=== PATIENT | female | born 1940 | race Two or more races ===

== ENCOUNTER 2021-06-05 14:33 | Inpatient (IN) | payer MEDICARE, OTHER ==
[~2021-06-05] VITALS: Ht 167.6 cm; Wt 68.2 kg
[2021-06-05] MEDS ORDERED: Z GUARD REMEDY PASTE 57 GM TUBE TOP PRN (20:00)
--- NOTE | 2021-06-05 20:30 | NUR ---
Patient arrived on the floor via ambulance from [facility], [facility] 2 EMT[facility] Awake, alert and oriented x 4, oriented to room, staff, call light and bed controls. Denies pain when keep still but complaint of pain when turned from the side.Routine admission care done. Plan of care initiated.
[2021-06-05] MEDS ORDERED: MULT-1201 PO (21:46)
[2021-06-05] MEDS ORDERED: BIMA2.5D5 EACHEYE (21:46)
[2021-06-05] MEDS ORDERED: ENOX40DI SQ (21:46)
[2021-06-05] MEDS ORDERED: ACET-2030 PO (21:46)
[2021-06-05] MEDS ORDERED: PITA2TAB PO (21:46)
[2021-06-05] MEDS ORDERED: OLME40TA12 PO (21:46)
[2021-06-05] MEDS ORDERED: DEXL60CA3 PO (21:46)
[2021-06-05] MEDS ORDERED: DILT-32 PO (21:46)
[2021-06-05] MEDS ORDERED: AMLO-212 PO (21:46)
[2021-06-05] MEDS ORDERED: ICOS1CAP PO (21:46)
[2021-06-05] MEDS ORDERED: MELA3TAB41 PO (21:46)
[2021-06-05] MEDS ORDERED: ASPI81TA31 PO (21:46)
[2021-06-05] MEDS ORDERED: DILT180C66 PO (21:46)
[2021-06-05] MEDS ORDERED: ALBU90AE IH (21:46)
[2021-06-05] MEDS ORDERED: CHOL-35 PO (21:46)
[2021-06-05] MEDS ORDERED: TRAM50TA2 PO (21:46)
[2021-06-05] MEDS ORDERED: ONDA4TAB11 PO (21:46)
--- NOTE | 2021-06-05 23:19 | NUR ---
Dr Bray here, seen and evaluated patient.
[2021-06-06 04:53] VITALS: BP 126/61
[2021-06-06] MEDS ORDERED: TRAMADOL HCL 50 MG TABLET PO PRN (05:45)
[2021-06-06] MEDS ORDERED: MELATONIN 3 MG TABLET PO PRN ×2 (05:45→07:00)
[2021-06-06] MEDS ORDERED: ONDANSETRON ODT 4 MG TAB.RAPDIS SL PRN (05:45)
[2021-06-06] MEDS ORDERED: ALBUTEROL SULFATE 2.5 MG/3 ML NEBU NEB PRN (06:15)
[2021-06-06 08:00] VITALS: BP 111/53
[2021-06-06] MEDS ORDERED: Icosapent Ethyl (Vascepa) 1 GM) PO SCH (08:00)
[2021-06-06] MEDS ORDERED: CHOLECALCIFEROL 1,000 UNIT TABLET PO SCH (09:00)
[2021-06-06] MEDS ORDERED: DILTIAZEM HCL CD 120 MG CAP.SR.24H PO SCH ×3 (09:00)
[2021-06-06] MEDS ORDERED: Medication Not On Formulary EA (Olmesartan Medoxomil (Benicar) 40 MG) PO SCH (09:00)
[2021-06-06] MEDS: ASPIRIN 81 MG TAB.CHEW PO SCH (09:15)
[2021-06-06] MEDS: AMLODIPINE 5 MG TABLET PO SCH (09:15)
[2021-06-06] MEDS: LOSARTAN POTASSIUM 50 MG TABLET PO SCH (09:15)
[2021-06-06] MEDS: ENOXAPARIN SODIUM 40 MG/0.4 ML DISP.SYRIN SQ SCH (09:16)
[2021-06-06] MEDS: MULTIVIT, IRON, MIN NO. 8, FA TABLET PO SCH (09:16)
[2021-06-06] MEDS ORDERED: CALC-995 PO (11:40)
[2021-06-06] MEDS ORDERED: CALC-883 PO (11:41)
[2021-06-06 15:45] VITALS: BP 105/55
[2021-06-06] MEDS: CALCIUM CARB/VITAMIN D 500MG-200UNITS TABLET PO SCH (17:30)
[2021-06-06] MEDS: ACETAMINOPHEN ES 500 MG TABLET PO SCH (20:15)
[2021-06-06 20:54] VITALS: BP 110/59
[2021-06-06] MEDS: LATANOPROST OPHT DROP 2.5 ML BOTTLE EACHEYE SCH (20:55)
[2021-06-06] MEDS ORDERED: PITAVASTATIN CALCIUM 2 MG PO SCH (21:00)
[2021-06-06] MEDS ORDERED: BIMATOPROST 0.01% OPHT DROP 2.5 ML BOTTLE EACHEYE SCH (21:00)
[2021-06-07 04:47] VITALS: BP 115/66
[2021-06-07] MEDS: PANTOPRAZOLE SODIUM 40 MG TABLET.DR PO SCH (06:05)
[2021-06-07 08:39] VITALS: BP 118/69
[2021-06-07] MEDS: CALCIUM CARB/VITAMIN D 500MG-200UNITS TABLET PO SCH ×2 (08:55→16:41)
[2021-06-07] MEDS: LOSARTAN POTASSIUM 50 MG TABLET PO SCH (08:55)
[2021-06-07] MEDS: AMLODIPINE 5 MG TABLET PO SCH (08:55)
[2021-06-07] MEDS: ASPIRIN 81 MG TAB.CHEW PO SCH (08:55)
[2021-06-07] MEDS: ENOXAPARIN SODIUM 40 MG/0.4 ML DISP.SYRIN SQ SCH (08:58)
[2021-06-07] MEDS: MULTIVIT, IRON, MIN NO. 8, FA TABLET PO SCH (09:12)
[2021-06-07 14:58] LABS: HEMATOCRIT 31.3 % (31.2-41.9); MEAN CORPUSCULAR HEMOGLOBIN 29.8 uug (24.7-32.8); MEAN CORPUSCULAR VOLUME 85.9 fL (75.5-95.3); PLATELET COUNT (AUTO) 353 K/uL (179-408)
[2021-06-07 15:19] LABS: BILIRUBIN,TOTAL 0.6 mg/dL (0.2-1.0); CREATININE 0.8 mg/dL (0.6-1.3); MAGNESIUM 2.3 mg/dL (1.8-2.4); PHOSPHOROUS 3.6 mg/dL (2.5-4.9); POTASSIUM 3.6 mmol/L (3.5-5.1); TOTAL PROTEIN, SERUM 7.5 g/dL (6.4-8.2)
[2021-06-07 16:45] VITALS: BP 116/59
[2021-06-07 20:02] VITALS: BP 100/65
[2021-06-07] MEDS: ACETAMINOPHEN ES 500 MG TABLET PO SCH (20:54)
[2021-06-07] MEDS: LATANOPROST OPHT DROP 2.5 ML BOTTLE EACHEYE SCH (21:00)
[2021-06-08 04:36] VITALS: BP 105/52
[2021-06-08] MEDS: PANTOPRAZOLE SODIUM 40 MG TABLET.DR PO SCH (05:47)
[2021-06-08 07:52] LABS: HEMATOCRIT 27.5 % (31.2-41.9); MEAN CORPUSCULAR VOLUME 85.7 fL (75.5-95.3); PLATELET COUNT (AUTO) 313 K/uL (179-408)
[2021-06-08 07:54] VITALS: BP 118/62
[2021-06-08 07:58] LABS: MAGNESIUM 1.9 mg/dL (1.8-2.4); PHOSPHOROUS 3.5 mg/dL (2.5-4.9)
[2021-06-08] MEDS: CALCIUM CARB/VITAMIN D 500MG-200UNITS TABLET PO SCH ×2 (08:32→17:31)
[2021-06-08] MEDS: LOSARTAN POTASSIUM 50 MG TABLET PO SCH (08:32)
[2021-06-08] MEDS: ASPIRIN 81 MG TAB.CHEW PO SCH (08:32)
[2021-06-08] MEDS: AMLODIPINE 5 MG TABLET PO SCH (08:33)
[2021-06-08] MEDS: MULTIVIT, IRON, MIN NO. 8, FA TABLET PO SCH (08:33)
[2021-06-08] MEDS: ENOXAPARIN SODIUM 40 MG/0.4 ML DISP.SYRIN SQ SCH (08:45)
[2021-06-08] MEDS: HYDROCODONE/APAP 10-325 MG TABLET PO PRN (08:48)
--- NOTE | 2021-06-08 10:57 | NUR ---
INDIVIDUALIZED PLAN OF CARE
[2021-06-08 16:48] VITALS: BP 106/59
[2021-06-08] MEDS: OMEGA-3 FATTY ACIDS/FISH OIL CAPSULE PO SCH (17:31)
[2021-06-08] MEDS: CALCIUM CARBONATE 500 MG TAB.CHEW PO PRN (17:32)
[2021-06-08] MEDS: LIVALO 1 MG PO SCH (20:44)
[2021-06-08] MEDS: ACETAMINOPHEN ES 500 MG TABLET PO SCH (20:44)
[2021-06-08] MEDS: [UNRECOGNIZED DRUG - OTHER] PO SCH (20:44)
[2021-06-08] MEDS: LATANOPROST OPHT DROP 2.5 ML BOTTLE EACHEYE SCH (20:45)
[2021-06-08 20:48] VITALS: BP 100/59
[2021-06-09 04:44] VITALS: BP 99/59
[2021-06-09] MEDS: PANTOPRAZOLE SODIUM 40 MG TABLET.DR PO SCH (05:18)
[2021-06-09 06:59] LABS: HEMATOCRIT 27.6 % (31.2-41.9); MEAN CORPUSCULAR HEMOGLOBIN 29.9 uug (24.7-32.8); MEAN CORPUSCULAR VOLUME 85.6 fL (75.5-95.3); PLATELET COUNT (AUTO) 303 K/uL (179-408)
[2021-06-09 07:32] LABS: THYROID STIMULATING HORMONE 3.078 mIU/mL (0.358-3.740)
[2021-06-09 08:00] VITALS: BP 112/62
[2021-06-09 08:07] LABS: BILIRUBIN,TOTAL 0.4 mg/dL (0.2-1.0); CREATININE 0.6 mg/dL (0.6-1.3); MAGNESIUM 1.8 mg/dL (1.8-2.4); PHOSPHOROUS 3.5 mg/dL (2.5-4.9); POTASSIUM 3.4 mmol/L (3.5-5.1); TOTAL PROTEIN, SERUM 6.3 g/dL (6.4-8.2); URIC ACID 2.5 mg/dL (2.6-6.0)
[2021-06-09] MEDS: MULTIVIT, IRON, MIN NO. 8, FA TABLET PO SCH (08:47)
[2021-06-09] MEDS: LOSARTAN POTASSIUM 50 MG TABLET PO SCH (08:47)
[2021-06-09] MEDS: OMEGA-3 FATTY ACIDS/FISH OIL CAPSULE PO SCH ×2 (08:47→16:43)
[2021-06-09] MEDS: ASPIRIN 81 MG TAB.CHEW PO SCH (08:47)
[2021-06-09] MEDS: CALCIUM CARB/VITAMIN D 500MG-200UNITS TABLET PO SCH ×2 (08:49→16:43)
[2021-06-09] MEDS: AMLODIPINE 5 MG TABLET PO SCH (08:49)
[2021-06-09] MEDS: HYDROCODONE/APAP 10-325 MG TABLET PO PRN (08:49)
[2021-06-09] MEDS: ENOXAPARIN SODIUM 40 MG/0.4 ML DISP.SYRIN SQ SCH (08:50)
[2021-06-09] MEDS ORDERED: POTASSIUM CHLORIDE 20 MEQ TAB.PRT.SR PO ONE (10:30)
[2021-06-09] MEDS ORDERED: OXYCODONE HCL 5 MG TABLET PO PRN (13:15)
--- NOTE | 2021-06-09 15:12 | NUR ---
Med. Surg: Nursing Notes: Monitoring Pain: Patient is awake and compliant with her pain medication, continue to monitor V/S, denies any pain or discomfort at this time, compliant with her physical therapy, continue to monitor for safety, continue with treatment plan.
[2021-06-09 16:00] VITALS: BP 117/61
[2021-06-09] MEDS: ACETAMINOPHEN ES 500 MG TABLET PO SCH (20:20)
[2021-06-09] MEDS: [UNRECOGNIZED DRUG - OTHER] PO SCH (20:23)
[2021-06-09] MEDS: LIVALO 1 MG PO SCH (20:23)
[2021-06-09 21:01] VITALS: BP 110/59
[2021-06-09] MEDS: LATANOPROST OPHT DROP 2.5 ML BOTTLE EACHEYE SCH (21:01)
[2021-06-10 04:54] VITALS: BP 108/57
[2021-06-10] MEDS: PANTOPRAZOLE SODIUM 40 MG TABLET.DR PO SCH (06:07)
[2021-06-10 06:56] LABS: CREATININE 0.6 mg/dL (0.6-1.3); POTASSIUM 3.8 mmol/L (3.5-5.1)
[2021-06-10] MEDS: MULTIVIT, IRON, MIN NO. 8, FA TABLET PO SCH (08:45)
[2021-06-10] MEDS: CALCIUM CARB/VITAMIN D 500MG-200UNITS TABLET PO SCH ×2 (08:45→17:02)
[2021-06-10] MEDS: ASPIRIN 81 MG TAB.CHEW PO SCH (08:45)
[2021-06-10] MEDS: OMEGA-3 FATTY ACIDS/FISH OIL CAPSULE PO SCH ×2 (08:45→17:02)
[2021-06-10] MEDS: AMLODIPINE 5 MG TABLET PO SCH (08:50)
[2021-06-10] MEDS: LOSARTAN POTASSIUM 50 MG TABLET PO SCH (08:50)
[2021-06-10] MEDS: HYDROCODONE/APAP 10-325 MG TABLET PO PRN (08:51)
[2021-06-10] MEDS: ENOXAPARIN SODIUM 40 MG/0.4 ML DISP.SYRIN SQ SCH (08:51)
[2021-06-10 10:39] VITALS: BP 86/47
[2021-06-10 12:30] VITALS: BP 107/60
[2021-06-10 12:32] VITALS: BP 75/44
--- NOTE | 2021-06-10 18:55 | NUR ---
Patient remains alert, oriented x 4, not in any form of distress, on room air. She complained of right hip pain prior physical therapy, given PRN pain medication as ordered with noted relief. Assisted with her needs. Call light and frequently used items placed within patient's reach. Will continue to monitor.
[2021-06-10 20:28] VITALS: BP 116/60
[2021-06-10] MEDS: [UNRECOGNIZED DRUG - OTHER] PO SCH (21:09)
[2021-06-10] MEDS: LIVALO 1 MG PO SCH (21:09)
[2021-06-10] MEDS: ACETAMINOPHEN ES 500 MG TABLET PO SCH (21:09)
[2021-06-10] MEDS: LATANOPROST OPHT DROP 2.5 ML BOTTLE EACHEYE SCH (21:10)
--- NOTE | 2021-06-11 03:57 | NUR ---
Resting in bed upon initial rounds. AAOx4 All needs attended. Kept comfortable. Admitted for pelvic ring fracture/sacral fracture. Denies any paiin nor any discomfort. Will monitor patient.Incontinent of bowel and bladder. Kept clean and dry. No acutge distress noted. Quiet night. VSS.
[2021-06-11 04:20] VITALS: BP 125/67
[2021-06-11] MEDS: PANTOPRAZOLE SODIUM 40 MG TABLET.DR PO SCH (06:14)
[2021-06-11 06:28] LABS: HEMATOCRIT 27.6 % (31.2-41.9); MEAN CORPUSCULAR HEMOGLOBIN 29.9 uug (24.7-32.8); MEAN CORPUSCULAR VOLUME 85.9 fL (75.5-95.3); PLATELET COUNT (AUTO) 323 K/uL (179-408)
[2021-06-11 06:59] LABS: CREATININE 0.6 mg/dL (0.6-1.3); PHOSPHOROUS 3.8 mg/dL (2.5-4.9)
[2021-06-11] MEDS: CALCIUM CARB/VITAMIN D 500MG-200UNITS TABLET PO SCH ×2 (08:48→16:56)
[2021-06-11] MEDS: MULTIVIT, IRON, MIN NO. 8, FA TABLET PO SCH (08:48)
[2021-06-11] MEDS: ASPIRIN 81 MG TAB.CHEW PO SCH (08:48)
[2021-06-11] MEDS: OMEGA-3 FATTY ACIDS/FISH OIL CAPSULE PO SCH ×2 (08:48→16:56)
[2021-06-11] MEDS: ENOXAPARIN SODIUM 40 MG/0.4 ML DISP.SYRIN SQ SCH (08:51)
[2021-06-11] MEDS: HYDROCODONE/APAP 10-325 MG TABLET PO PRN (08:56)
[2021-06-11] MEDS: AMLODIPINE 5 MG TABLET PO SCH (09:00)
[2021-06-11] MEDS: LOSARTAN POTASSIUM 50 MG TABLET PO SCH (09:00)
--- NOTE | 2021-06-11 12:13 | NUR ---
INTERDISCIPLINARY TEAM CONFERENCE
[2021-06-11 16:29] VITALS: BP 119/67
[2021-06-11 20:00] VITALS: BP 113/54
[2021-06-11] MEDS ORDERED: HYDROCORTISONE 1% CREAM 30 GM TUBE TP PRN (20:00)
[2021-06-11] MEDS: LIVALO 1 MG PO SCH (20:39)
[2021-06-11] MEDS: ACETAMINOPHEN ES 500 MG TABLET PO SCH (20:39)
[2021-06-11] MEDS: [UNRECOGNIZED DRUG - OTHER] PO SCH (20:39)
[2021-06-11] MEDS: LATANOPROST OPHT DROP 2.5 ML BOTTLE EACHEYE SCH (20:39)
[2021-06-12 04:00] VITALS: BP 123/74
--- NOTE | 2021-06-12 04:21 | NUR ---
AAOx4 Needs attended. c/o of itching of the head/scalp. Hydrocortisone ordered. Needs attended. VSS. Fall precautions maintained. Siderails up for safety.No acute distress noted. Fall precautions maintained. Incontinent of bowel and bladder. Kept clean and dry. Will monitor patient.
[2021-06-12] MEDS: PANTOPRAZOLE SODIUM 40 MG TABLET.DR PO SCH (06:13)
[2021-06-12 07:18] LABS: HEMATOCRIT 29.1 % (31.2-41.9); MEAN CORPUSCULAR HEMOGLOBIN 29.6 uug (24.7-32.8); PLATELET COUNT (AUTO) 370 K/uL (179-408)
[2021-06-12 07:35] VITALS: BP 133/72
[2021-06-12 08:05] LABS: CREATININE 0.7 mg/dL (0.6-1.3); MAGNESIUM 1.9 mg/dL (1.8-2.4); PHOSPHOROUS 4.2 mg/dL (2.5-4.9); POTASSIUM 4.3 mmol/L (3.5-5.1)
[2021-06-12] MEDS: ASPIRIN 81 MG TAB.CHEW PO SCH (08:16)
[2021-06-12] MEDS: LOSARTAN POTASSIUM 50 MG TABLET PO SCH (08:16)
[2021-06-12] MEDS: OMEGA-3 FATTY ACIDS/FISH OIL CAPSULE PO SCH ×2 (08:16→16:50)
[2021-06-12] MEDS: AMLODIPINE 5 MG TABLET PO SCH (08:17)
[2021-06-12] MEDS: MULTIVIT, IRON, MIN NO. 8, FA TABLET PO SCH (08:17)
[2021-06-12] MEDS: CALCIUM CARB/VITAMIN D 500MG-200UNITS TABLET PO SCH ×2 (08:17→16:50)
[2021-06-12] MEDS: ENOXAPARIN SODIUM 40 MG/0.4 ML DISP.SYRIN SQ SCH (08:18)
--- NOTE | 2021-06-12 15:42 | NUR ---
Patient remains alert, oriented x 4, not in any form of distress, on room air. She is Up in W/C with physical therapy. No pain medication needed it at this time. Assisted with her needs. Call light and frequently used items placed within patient's reach. Will continue to monitor.
[2021-06-12 17:13] VITALS: BP 140/71
[2021-06-12 20:00] VITALS: BP_SYST 108; BP_SYST 122; BP_DIAS 51; BP_DIAS 53
[2021-06-12] MEDS: LIVALO 1 MG PO SCH (20:07)
[2021-06-12] MEDS: [UNRECOGNIZED DRUG - OTHER] PO SCH (20:07)
[2021-06-12] MEDS: LATANOPROST OPHT DROP 2.5 ML BOTTLE EACHEYE SCH (20:07)
[2021-06-12] MEDS: ACETAMINOPHEN ES 500 MG TABLET PO SCH (20:08)
[2021-06-13 04:00] VITALS: BP 122/74
--- NOTE | 2021-06-13 04:04 | NUR ---
Quiet night. AAOx4 No acute distress noted. VSS. Fall precautions maintained. Siderails up for safety. Incontinent of bowel and bladder. Kept clean and dry No complaints presented during the shift. Will monitor patient.
[2021-06-13] MEDS: PANTOPRAZOLE SODIUM 40 MG TABLET.DR PO SCH (06:19)
[2021-06-13 06:54] LABS: HEMATOCRIT 29.1 % (31.2-41.9); MEAN CORPUSCULAR HEMOGLOBIN 30.3 uug (24.7-32.8); PLATELET COUNT (AUTO) 412 K/uL (179-408)
[2021-06-13 07:39] VITALS: BP 130/73
[2021-06-13] MEDS: AMLODIPINE 5 MG TABLET PO SCH (08:42)
[2021-06-13] MEDS: LOSARTAN POTASSIUM 50 MG TABLET PO SCH (08:42)
[2021-06-13] MEDS: OMEGA-3 FATTY ACIDS/FISH OIL CAPSULE PO SCH ×2 (08:42→17:25)
[2021-06-13] MEDS: CALCIUM CARB/VITAMIN D 500MG-200UNITS TABLET PO SCH ×2 (08:42→17:25)
[2021-06-13] MEDS: ASPIRIN 81 MG TAB.CHEW PO SCH (08:42)
[2021-06-13] MEDS: MULTIVIT, IRON, MIN NO. 8, FA TABLET PO SCH (08:42)
[2021-06-13] MEDS: ENOXAPARIN SODIUM 40 MG/0.4 ML DISP.SYRIN SQ SCH (08:52)
[2021-06-13] MEDS: HYDROCODONE/APAP 10-325 MG TABLET PO PRN (08:55)
[2021-06-13 09:02] LABS: CREATININE 0.6 mg/dL (0.6-1.3); MAGNESIUM 2.2 mg/dL (1.8-2.4); PHOSPHOROUS 4.2 mg/dL (2.5-4.9); POTASSIUM 3.9 mmol/L (3.5-5.1)
[2021-06-13 15:23] VITALS: BP 112/68
--- NOTE | 2021-06-13 20:00 | NUR ---
NSG: Received Patient sitting up in bed. Alert, oriented x 4, not in any form of distress, on room air. No c/o pain or discomfort at this time. Assisted with her needs. Call light and frequently used items placed within patient's reach. Will continue to monitor.
[2021-06-13] MEDS: [UNRECOGNIZED DRUG - OTHER] PO SCH (20:16)
[2021-06-13] MEDS: LIVALO 1 MG PO SCH (20:16)
[2021-06-13] MEDS: LATANOPROST OPHT DROP 2.5 ML BOTTLE EACHEYE SCH (20:17)
[2021-06-13] MEDS: ACETAMINOPHEN ES 500 MG TABLET PO SCH (20:17)
[2021-06-13 20:39] VITALS: BP 131/69
[2021-06-14 04:53] VITALS: BP 131/53
--- NOTE | 2021-06-14 05:29 | NUR ---
nsg: Remain calm and cooperative. no c/o pain or discomfort at this time. resting in bed comfortably. continue plan of care.
[2021-06-14] MEDS: PANTOPRAZOLE SODIUM 40 MG TABLET.DR PO SCH (06:08)
[2021-06-14 07:47] VITALS: BP 123/65
[2021-06-14] MEDS: MULTIVIT, IRON, MIN NO. 8, FA TABLET PO SCH (09:00)
[2021-06-14] MEDS: OMEGA-3 FATTY ACIDS/FISH OIL CAPSULE PO SCH ×2 (09:00→16:39)
[2021-06-14] MEDS: LOSARTAN POTASSIUM 50 MG TABLET PO SCH (09:00)
[2021-06-14] MEDS: ASPIRIN 81 MG TAB.CHEW PO SCH (09:00)
[2021-06-14] MEDS: CALCIUM CARB/VITAMIN D 500MG-200UNITS TABLET PO SCH ×2 (09:00→16:39)
[2021-06-14] MEDS: AMLODIPINE 5 MG TABLET PO SCH (09:01)
[2021-06-14] MEDS: ENOXAPARIN SODIUM 40 MG/0.4 ML DISP.SYRIN SQ SCH (09:12)
[2021-06-14] MEDS ORDERED: LOPERAMIDE HCL 2 MG CAPSULE PO PRN (11:15)
[2021-06-14 11:27] VITALS: BP 123/65
--- NOTE | 2021-06-14 14:23 | NUR ---
Received patient sleeping in her room. A/O X 3 to person, place. Pt. is calm, cooperative. Compliant with medications. Continent. Requires minimal assistance with ADL. Fall and safety precautions implemented.
[2021-06-14 15:08] VITALS: BP 107/54
--- NOTE | 2021-06-14 21:00 | NUR ---
RESTED FAIRLY WELL, NO ACUTE DISTRESS NOTED, NEEDS ATTENDED TO, DUE MEDS GIVEN.
[2021-06-14] MEDS: [UNRECOGNIZED DRUG - OTHER] PO SCH (21:50)
[2021-06-14] MEDS: LATANOPROST OPHT DROP 2.5 ML BOTTLE EACHEYE SCH (21:50)
[2021-06-14] MEDS: LIVALO 1 MG PO SCH (21:50)
[2021-06-14] MEDS: ACETAMINOPHEN ES 500 MG TABLET PO SCH (21:50)
[2021-06-14 22:01] VITALS: BP 115/62
[2021-06-15 05:37] VITALS: BP 120/60
[2021-06-15 07:42] VITALS: BP 121/61
--- NOTE | 2021-06-15 07:54 | NUR ---
HAD A QUIET NOC, SLEPT AT FREQUENT INTERVALS. ENDORSED TO AM NURSE IN FAIR CONDITION.
--- NOTE | 2021-06-15 09:10 | NUR ---
RECEIVED PATIENT IN BED AWAKE ALERT AND ORIENTED WITH NO ACUTE DISTRESS NOTED. WILL CONTINUE TO MONITOR.
[2021-06-15] MEDS: HYDROCODONE/APAP 10-325 MG TABLET PO PRN (09:19)
[2021-06-15] MEDS: PANTOPRAZOLE SODIUM 40 MG TABLET.DR PO SCH (10:52)
[2021-06-15] MEDS: AMLODIPINE 5 MG TABLET PO SCH (10:52)
[2021-06-15] MEDS: LOSARTAN POTASSIUM 50 MG TABLET PO SCH (10:52)
[2021-06-15] MEDS: OMEGA-3 FATTY ACIDS/FISH OIL CAPSULE PO SCH ×2 (10:52→16:48)
[2021-06-15] MEDS: CALCIUM CARB/VITAMIN D 500MG-200UNITS TABLET PO SCH ×2 (10:52→16:48)
[2021-06-15] MEDS: MULTIVIT, IRON, MIN NO. 8, FA TABLET PO SCH (10:53)
[2021-06-15] MEDS: ASPIRIN 81 MG TAB.CHEW PO SCH (10:57)
[2021-06-15] MEDS: ENOXAPARIN SODIUM 40 MG/0.4 ML DISP.SYRIN SQ SCH (10:57)
[2021-06-15 16:43] VITALS: BP 101/55
[2021-06-15] MEDS: ACETAMINOPHEN ES 500 MG TABLET PO SCH (20:02)
[2021-06-15] MEDS: [UNRECOGNIZED DRUG - OTHER] PO SCH (20:03)
[2021-06-15] MEDS: LATANOPROST OPHT DROP 2.5 ML BOTTLE EACHEYE SCH (20:03)
[2021-06-15] MEDS: LIVALO 1 MG PO SCH (20:03)
[2021-06-15 21:39] VITALS: BP 109/52
[2021-06-16 04:20] VITALS: BP 121/69
--- NOTE | 2021-06-16 05:55 | NUR ---
Patient remained stable during the shift. no distress identified. Kept on a comfortable position. Kept call light within reach. All due meds given. all needs attended. Safety measures maintained. Will endorse to the next shift for continuity of care.
[2021-06-16] MEDS: PANTOPRAZOLE SODIUM 40 MG TABLET.DR PO SCH (06:12)
[2021-06-16] MEDS: ASPIRIN 81 MG TAB.CHEW PO SCH (08:43)
[2021-06-16] MEDS: MULTIVIT, IRON, MIN NO. 8, FA TABLET PO SCH (08:43)
[2021-06-16] MEDS: LOSARTAN POTASSIUM 50 MG TABLET PO SCH (08:44)
[2021-06-16] MEDS: OMEGA-3 FATTY ACIDS/FISH OIL CAPSULE PO SCH ×2 (08:44→16:19)
[2021-06-16] MEDS: CALCIUM CARB/VITAMIN D 500MG-200UNITS TABLET PO SCH ×2 (08:44→16:19)
[2021-06-16] MEDS: AMLODIPINE 5 MG TABLET PO SCH (08:44)
[2021-06-16] MEDS: ENOXAPARIN SODIUM 40 MG/0.4 ML DISP.SYRIN SQ SCH (08:46)
[2021-06-16 13:41] VITALS: BP 127/62
[2021-06-16 16:06] VITALS: BP 114/53
[2021-06-16 20:00] VITALS: BP 115/55
[2021-06-16] MEDS: LATANOPROST OPHT DROP 2.5 ML BOTTLE EACHEYE SCH (20:33)
[2021-06-16] MEDS: LIVALO 1 MG PO SCH (20:33)
[2021-06-16] MEDS: ACETAMINOPHEN ES 500 MG TABLET PO SCH (20:33)
[2021-06-16] MEDS: [UNRECOGNIZED DRUG - OTHER] PO SCH (20:33)
[2021-06-17 04:00] VITALS: BP 118/63
[2021-06-17] MEDS: PANTOPRAZOLE SODIUM 40 MG TABLET.DR PO SCH (06:17)
[2021-06-17 06:40] LABS: HEMATOCRIT 27.7 % (31.2-41.9); MEAN CORPUSCULAR HEMOGLOBIN 29.6 uug (24.7-32.8); PLATELET COUNT (AUTO) 449 K/uL (179-408)
[2021-06-17 06:56] LABS: CREATININE 0.7 mg/dL (0.6-1.3); MAGNESIUM 2.1 mg/dL (1.8-2.4); PHOSPHOROUS 3.4 mg/dL (2.5-4.9)
[2021-06-17] MEDS: OMEGA-3 FATTY ACIDS/FISH OIL CAPSULE PO SCH ×2 (08:59→17:36)
[2021-06-17] MEDS: ASPIRIN 81 MG TAB.CHEW PO SCH (08:59)
[2021-06-17] MEDS: MULTIVIT, IRON, MIN NO. 8, FA TABLET PO SCH (09:01)
[2021-06-17] MEDS: CALCIUM CARB/VITAMIN D 500MG-200UNITS TABLET PO SCH ×2 (09:01→17:36)
[2021-06-17] MEDS: ENOXAPARIN SODIUM 40 MG/0.4 ML DISP.SYRIN SQ SCH (09:02)
[2021-06-17] MEDS: HYDROCODONE/APAP 10-325 MG TABLET PO PRN (09:03)
[2021-06-17] MEDS: LOSARTAN POTASSIUM 50 MG TABLET PO SCH (11:00)
[2021-06-17] MEDS: AMLODIPINE 5 MG TABLET PO SCH (11:00)
[2021-06-17 12:00] VITALS: BP 113/59
--- NOTE | 2021-06-17 18:04 | NUR ---
Patient remains alert, oriented x 4, not in any form of distress, on room air. She complained of right hip pain, given PRN pain medication as ordered with noted relief. Assisted patient to the bathroom to void, ambulated with walker. She participated with therapy and tolerated well. Family at bedside.
[2021-06-17 20:00] VITALS: BP 121/63
[2021-06-17] MEDS: [UNRECOGNIZED DRUG - OTHER] PO SCH (20:54)
[2021-06-17] MEDS: ACETAMINOPHEN ES 500 MG TABLET PO SCH (20:54)
[2021-06-17] MEDS: LIVALO 1 MG PO SCH (20:54)
[2021-06-17] MEDS: LATANOPROST OPHT DROP 2.5 ML BOTTLE EACHEYE SCH (20:54)
--- NOTE | 2021-06-18 | NUR ---
RECD AWAKE ,ALERT AND ORIENTED X 3, VOIDING FREELY WELL, AMBULATE TO BR USING WALKER,NO VOICED COMPLAINTS.RESTED FAIRLY WELL.
[2021-06-18 04:00] VITALS: BP 117/48
--- NOTE | 2021-06-18 04:44 | NUR ---
Quiet night. AAOx3-4 All due meds given Needs attended. Slept well. Voiding well. VSS. Kept comfortable.
[2021-06-18] MEDS: PANTOPRAZOLE SODIUM 40 MG TABLET.DR PO SCH (06:15)
[2021-06-18] MEDS: ASPIRIN 81 MG TAB.CHEW PO SCH (08:47)
[2021-06-18] MEDS: LOSARTAN POTASSIUM 50 MG TABLET PO SCH (08:49)
[2021-06-18] MEDS: AMLODIPINE 5 MG TABLET PO SCH (08:49)
[2021-06-18] MEDS: OMEGA-3 FATTY ACIDS/FISH OIL CAPSULE PO SCH ×2 (08:49→16:33)
[2021-06-18] MEDS: MULTIVIT, IRON, MIN NO. 8, FA TABLET PO SCH (08:50)
[2021-06-18] MEDS: CALCIUM CARB/VITAMIN D 500MG-200UNITS TABLET PO SCH ×2 (08:50→16:33)
[2021-06-18] MEDS: ENOXAPARIN SODIUM 40 MG/0.4 ML DISP.SYRIN SQ SCH (08:52)
[2021-06-18 09:08] VITALS: BP 106/68
[2021-06-18 13:39] VITALS: BP 127/65
[2021-06-18 16:00] VITALS: BP 136/70
--- NOTE | 2021-06-18 18:22 | NUR ---
patient remained stable during the shift. no distress identified. frequent visual checks done. all due meds and needs attended. kept call light within reach. safety measures maintained. will endorse to the next shift for continuity of care.
[2021-06-18 21:15] VITALS: BP 137/73
[2021-06-18] MEDS: LATANOPROST OPHT DROP 2.5 ML BOTTLE EACHEYE SCH (22:49)
[2021-06-18] MEDS: LIVALO 1 MG PO SCH (22:49)
[2021-06-18] MEDS: [UNRECOGNIZED DRUG - OTHER] PO SCH (22:49)
[2021-06-18] MEDS: ACETAMINOPHEN ES 500 MG TABLET PO SCH (22:50)
--- NOTE | 2021-06-19 | NUR ---
HS CARE DONE, VITAL SIGNS W/I NORMAL LIMITS, SLEP AT LONG INTERVALS. NEEDS ATTENDED TO.
[2021-06-19 07:30] VITALS: BP 121/66
[2021-06-19] MEDS: PANTOPRAZOLE SODIUM 40 MG TABLET.DR PO SCH (07:30)
[2021-06-19] MEDS: AMLODIPINE 5 MG TABLET PO SCH (09:28)
[2021-06-19] MEDS: ASPIRIN 81 MG TAB.CHEW PO SCH (09:28)
[2021-06-19] MEDS: OMEGA-3 FATTY ACIDS/FISH OIL CAPSULE PO SCH ×2 (09:28→17:10)
[2021-06-19] MEDS: LOSARTAN POTASSIUM 50 MG TABLET PO SCH (09:29)
[2021-06-19] MEDS: MULTIVIT, IRON, MIN NO. 8, FA TABLET PO SCH (09:29)
[2021-06-19] MEDS: CALCIUM CARB/VITAMIN D 500MG-200UNITS TABLET PO SCH ×2 (09:29→17:11)
[2021-06-19] MEDS: ENOXAPARIN SODIUM 40 MG/0.4 ML DISP.SYRIN SQ SCH (09:39)
--- NOTE | 2021-06-19 10:00 | NUR ---
Patient remains alert, oriented x 4, not in any form of distress, on room air.Up in W/C with PT. No complained of right hip pain at this time, on PRN pain medication as ordered . Assisted patient to the bathroom had a BM x 1, ambulated with walker. She participated with therapy and tolerated well.
[2021-06-19 11:02] VITALS: BP 135/64
[2021-06-19 14:59] VITALS: BP 143/71
[2021-06-19] MEDS: LATANOPROST OPHT DROP 2.5 ML BOTTLE EACHEYE SCH (22:10)
[2021-06-19] MEDS: LIVALO 1 MG PO SCH (22:11)
[2021-06-19] MEDS: [UNRECOGNIZED DRUG - OTHER] PO SCH (22:11)
[2021-06-19] MEDS: ACETAMINOPHEN ES 500 MG TABLET PO SCH (22:13)
[2021-06-19] MEDS: CALCIUM CARBONATE 500 MG TAB.CHEW PO PRN (22:22)
--- NOTE | 2021-06-20 | NUR ---
IN APPARENTLY FAIR CONDITION, RESTED WELL, UNEVENTFUL NITE.
[2021-06-20] MEDS: PANTOPRAZOLE SODIUM 40 MG TABLET.DR PO SCH ×2 (06:28→07:37)
[2021-06-20 08:03] VITALS: BP 106/52
[2021-06-20] MEDS: ASPIRIN 81 MG TAB.CHEW PO SCH (08:20)
[2021-06-20] MEDS: CALCIUM CARB/VITAMIN D 500MG-200UNITS TABLET PO SCH ×2 (08:20→16:08)
[2021-06-20] MEDS: MULTIVIT, IRON, MIN NO. 8, FA TABLET PO SCH (08:20)
[2021-06-20] MEDS: OMEGA-3 FATTY ACIDS/FISH OIL CAPSULE PO SCH ×2 (08:20→16:08)
[2021-06-20] MEDS: ENOXAPARIN SODIUM 40 MG/0.4 ML DISP.SYRIN SQ SCH (08:23)
[2021-06-20] MEDS: AMLODIPINE 5 MG TABLET PO SCH (09:35)
[2021-06-20] MEDS: LOSARTAN POTASSIUM 50 MG TABLET PO SCH (09:36)
[2021-06-20 16:06] VITALS: BP 157/55
[2021-06-20 20:00] VITALS: BP 138/72
[2021-06-20] MEDS: LIVALO 1 MG PO SCH (20:13)
[2021-06-20] MEDS: ACETAMINOPHEN ES 500 MG TABLET PO SCH (20:13)
[2021-06-20] MEDS: LATANOPROST OPHT DROP 2.5 ML BOTTLE EACHEYE SCH (20:13)
[2021-06-20] MEDS: [UNRECOGNIZED DRUG - OTHER] PO SCH (20:13)
[2021-06-21] MEDS: PANTOPRAZOLE SODIUM 40 MG TABLET.DR PO SCH (06:11)
[2021-06-21 08:31] VITALS: BP 108/59
[2021-06-21] MEDS: AMLODIPINE 5 MG TABLET PO SCH (09:00)
[2021-06-21] MEDS: OMEGA-3 FATTY ACIDS/FISH OIL CAPSULE PO SCH ×2 (09:47→17:06)
[2021-06-21] MEDS: CALCIUM CARB/VITAMIN D 500MG-200UNITS TABLET PO SCH ×2 (09:48→17:05)
[2021-06-21] MEDS: ASPIRIN 81 MG TAB.CHEW PO SCH (09:48)
[2021-06-21] MEDS: LOSARTAN POTASSIUM 50 MG TABLET PO SCH (09:48)
[2021-06-21] MEDS: MULTIVIT, IRON, MIN NO. 8, FA TABLET PO SCH (09:49)
[2021-06-21] MEDS: ENOXAPARIN SODIUM 40 MG/0.4 ML DISP.SYRIN SQ SCH (09:49)
[2021-06-21 15:12] VITALS: BP 101/57
[2021-06-21] MEDS: LATANOPROST OPHT DROP 2.5 ML BOTTLE EACHEYE SCH (20:21)
[2021-06-21] MEDS: [UNRECOGNIZED DRUG - OTHER] PO SCH (20:21)
[2021-06-21] MEDS: ACETAMINOPHEN ES 500 MG TABLET PO SCH (20:21)
[2021-06-21] MEDS: LIVALO 1 MG PO SCH (20:21)
[2021-06-21 20:32] VITALS: BP 125/78
[2021-06-22 04:20] VITALS: BP 116/62
--- NOTE | 2021-06-22 05:14 | NUR ---
PATIENT ASLEEP WELL THROUGHOUT THE NIGHT. VS WNL. CALL LIGHT IN REACH. ALL NEEDS ATTENDED. WILL CONTINUE TO MONITOR AND ASSESS.
[2021-06-22] MEDS: PANTOPRAZOLE SODIUM 40 MG TABLET.DR PO SCH (06:29)
[2021-06-22 08:49] VITALS: BP 124/63
[2021-06-22] MEDS: LOSARTAN POTASSIUM 50 MG TABLET PO SCH (09:39)
[2021-06-22] MEDS: ASPIRIN 81 MG TAB.CHEW PO SCH (09:39)
[2021-06-22 09:40] VITALS: BP 124/63
[2021-06-22] MEDS: OMEGA-3 FATTY ACIDS/FISH OIL CAPSULE PO SCH (09:40)
[2021-06-22] MEDS: MULTIVIT, IRON, MIN NO. 8, FA TABLET PO SCH (09:40)
[2021-06-22] MEDS: AMLODIPINE 5 MG TABLET PO SCH (09:40)
[2021-06-22] MEDS: CALCIUM CARB/VITAMIN D 500MG-200UNITS TABLET PO SCH (09:42)
[2021-06-22] MEDS: ENOXAPARIN SODIUM 40 MG/0.4 ML DISP.SYRIN SQ SCH (09:42)
--- NOTE | 2021-06-22 15:31 | NUR ---
AMBULANCE HERE TO PICK HER UP. D/C INSTRUCTIONS GIVEN TO HER AND EXPLAINED OVER THE PHONE TO HER SON. HE VERBALIZED UNDERSTANDING I TOLD HIM TO GIVE ME A CALL BEFORE 730 WHEN MY SHIFT ENDS IF HE STILL HAS QUESTIONS ONCE SHE GETS HOME. VERBALIZED UNDERSTANDING
--- NOTE | 2021-06-23 16:11 | NUR ---
INTERDISCIPLINARY TEAM CONFERENCE THIS WAS OBSERVED AND DONE ON 06/18/21 13:00
== END 2021-06-22 15:36 | disposition home health service (06) | DRG 559 ==
PROVIDERS: ADMIT Physical Medicine & Rehabilitation Pain Medicine; ATTEND Physical Medicine & Rehabilitation Pain Medicine
DX: S32.810D Multiple fractures of pelvis with stable disruption of pelvic ring, subsequent encounter for fracture with routine healing (principal); N17.0 Acute kidney failure with tubular necrosis; E22.2 Syndrome of inappropriate secretion of antidiuretic hormone; W18.30XD Fall on same level, unspecified, subsequent encounter; E78.5 Hyperlipidemia, unspecified; F32.A Depression, unspecified; F41.9 Anxiety disorder, unspecified; I10 Essential (primary) hypertension; J45.909 Unspecified asthma, uncomplicated; K21.9 Gastro-esophageal reflux disease without esophagitis; R26.9 Unspecified abnormalities of gait and mobility; D64.9 Anemia, unspecified; E86.1 Hypovolemia; Z79.899 Other long term (current) drug therapy; E79.0 Hyperuricemia without signs of inflammatory arthritis and tophaceous disease; R53.1 Weakness
CPT/HCPCS: 36415; 72170; 73130; 83735; 84100; 84443; 84550; 85025; 97161; 97535-GO-CO; A9150; J1650